=== PATIENT | female | born 1970 | race Asian ===

== ENCOUNTER 2021-10-11 10:32 | Emergency (ER) | payer SELFPAY ==
[~2021-10-11] VITALS: Ht 152.4 cm; Wt 50.8 kg
--- NOTE | 2021-10-11 10:42 | NUR ---
TO ER BED 18, BIB CO-WORKER FROM UPSTAIRS, C/O CHEST TIGHTNESS WHILE AT WORK, WAS PUSHING PATIENT'S BED WHEN SUDDENLY FELT CHEST TIGHTNESS, AAOX3, BREATHING EVEN AND NON LABORED, AWAITING MD LUTZ
[2021-10-11 11:19] LABS: BASOPHILS % (AUTO) 0.6 % (0.0-2.0); HEMATOCRIT 44 % (33-45); LYMPHOCYTES # (AUTO) 0.7 K/uL (0.8-4.8); LYMPHOCYTES % (AUTO) 19.2 % (20.0-44.0); MEAN CORPUSCULAR HGB CONC 34 g/dl (31.0-36.0); MEAN CORPUSCULAR VOLUME 95 fL (82-100); MONOCYTES # (AUTO) 0.2 K/uL (0.1-1.30); MONOCYTES % (AUTO) 4.6 % (2.0-12.0); NEUTROPHILS # (AUTO) 2.9 K/uL (1.8-8.9); NEUTROPHILS % (AUTO) 75.6 % (43.0-81.0); PLATELET COUNT (AUTO) 282 K/uL (150-450); RED BLOOD CELL COUNT(AUTO) 4.65 MIL/uL (4.0-5.2); WHITE BLOOD COUNT (AUTO) 3.9 K/uL (4.3-11.0)
[2021-10-11 12:30] LABS: CARBON DIOXIDE 25 mmol/L (21-32); CHLORIDE 103 mmol/L (98-107); CREATININE 0.7 mg/dL (0.6-1.3); GLUCOSE 101 mg/dL (74-106); POTASSIUM 3.8 mmol/L (3.5-5.1); SODIUM SERUM 137 mmol/L (136-145); UREA NITROGEN, BLOOD 13 mg/dL (7-18)
--- NOTE | 2021-10-11 14:00 | NUR ---
PROVIDED SNACKS PER PT REQUESTS
--- NOTE | 2021-10-11 15:55 | NUR ---
IV removed. Catheter intact and site benign. Pressure and 4x4 applied to site. No bleeding noted.Patient discharged to home in stable condition. Written and verbal after care instructions given. Patient verbalizes understanding of instruction.
[2021-10-11 15:59] VITALS: BP 138/95
== END 2021-10-11 16:00 | disposition home or self-care (01) ==
LOC: EDUNIT# 10:32 → ER 10:34
DX: R07.89 Other chest pain (principal); Z88.0 Allergy status to penicillin
CPT/HCPCS: 36415; 71045-TC; 80048-TC; 84484-TC; 85025-TC